=== PATIENT | female | born 1985 | race Caucasian/White ===

== ENCOUNTER 2016-08-22 05:40 | Observation (INO) | payer MEDICAID ==
[2016-08-22 05:40] VITALS: BMI 36.6
[2016-08-22 05:51] VITALS: O2SAT 100
--- NOTE | 2016-08-22 05:58 | C.PDOC ---
History Of Present Illness patient presents with diffuse abdominal pain, sharp, cramping,. no n/v. Time Seen by Provider: 08/22/16 05:58 Chief Complaint (Nursing): Abdominal Pain Past Medical History Reviewed: Historical Data, Nursing Documentation, Vital Signs Vital Signs: Last Vital Signs Temp 97.4 F L 08/22/16 05:48 Pulse 104 H 08/22/16 05:48 Resp 20 08/22/16 05:48 BP 134/72 08/22/16 05:48 Pulse Ox 100 08/22/16 06:18 - Medical History PMH: Gastritis, Hiatal Hernia Surgical History: Tonsillectomy - [facility] Procedures MANUAL ASSIST DELIV NEC (10/13/14) PACKED CELL TRANSFUSION (10/13/14) REPAIR OB LACERATION NEC (10/13/14) Family History: States: Unknown Family Hx - Social History Hx Tobacco Use: No Hx Alcohol Use: No Hx Substance Use: No - Immunization History Hx Tetanus Toxoid Vaccination: No Hx Influenza Vaccination: No Hx Pneumococcal Vaccination: No Review Of Systems Constitutional: Negative for: Fever, Chills ENT: Negative for: Throat Pain Cardiovascular: Negative for: Chest Pain Respiratory: Negative for: Shortness of Breath Gastrointestinal: Positive for: Abdominal Pain. Negative for: Nausea, Vomiting , Constipation Genitourinary: Negative for: Hematuria Musculoskeletal: Negative for: Back Pain Skin: Negative for: Rash, Lesions, Jaundice, Bruising Neurological: Negative for: Weakness Psych: Positive for: Anxiety Physical Exam - Physical Exam Appears: Non-toxic Skin: Warm, Dry Neck: Supple Chest: Symmetrical Cardiovascular: Rhythm Regular Respiratory: No Rales, No Rhonchi, No Wheezing Gastrointestinal/Abdominal: Soft, Tenderness (diffuse), No Distention, No Guarding Extremity: Normal ROM Extremity: Bilateral: Atraumatic, Normal Color And Temperature, Normal ROM Neurological/Psych: Oriented x3, Normal Speech, Normal Cognition Gait: Steady ED Course And Treatment - Laboratory Results Result Diagrams: 08/22/16 06:24 08/22/16 06:24 O2 Sat by Pulse Oximetry: 100 Pulse Ox Interpretation: Normal Progress Note: blood work Disposition Counseled Patient/Family Regarding: Studies Performed, Diagnosis - Disposition Disposition Time: 05:58 Condition: UNKNOWN - Clinical Impression Clinical Impression: Abdominal pain Physician Patient Turnover Patient Signed Over To: Jazmín Hogue Handoff Comments: pending labs , ct abd and disposition
[2016-08-22] MEDS ORDERED: Sodium Chloride 0.9% 1,000 ML IV ONE (06:14)
[2016-08-22] MEDS ORDERED: Sodium Chloride 0.9% 1,000 ML ONE (06:25)
[2016-08-22 06:29] LABS: BASO # 0.1 K/uL (0.0-0.2); BASO % 0.5 % (0.0-2.0); EOS # 0.1 K/uL (0.0-0.7); EOS % 0.8 % (0.0-4.0); HEMATOCRIT 39.9 % (34.0-47.0); LYMPH # 2.1 K/uL (1.0-4.3); MEAN CELL VOLUME 77.5 fL (81.0-99.0); MEAN CORPUSCULAR HEMOGLOBIN 24.9 pg (27.0-31.0); MEAN CORPUSCULAR HGB CONC 32.2 g/dL (33.0-37.0); MEAN PLATELET VOLUME 8.5 fL (7.2-11.7); MONO # 0.6 K/uL (0.0-0.8); MONO % 4.3 % (0.0-10.0); RED CELL DISTRIBUTION WIDTH 16.4 % (11.5-14.5); WHITE BLOOD COUNT 14.2 K/uL (4.8-10.8)
[2016-08-22 06:36] LABS: CHLORIDE 99 mmol/L (98-107); SODIUM 139 mmol/L (132-148)
[2016-08-22 06:37] LABS: POTASSIUM 4.9 mmol/L (3.6-5.2)
[2016-08-22 06:39] LABS: ALKALINE PHOSPHATASE 125 U/L (38-126); ALT/SGPT 99 U/L (9-52); AST/SGOT 208 U/L (14-36); BILIRUBIN,TOTAL 0.9 mg/dL (0.2-1.3); BLOOD UREA NITROGEN 15 mg/dL (7-17); CALCIUM 8.8 mg/dl (8.6-10.4); CARBON DIOXIDE 24 mmol/L (22-30); GFR AFRICAN-AMERICAN > 60; GLUCOSE,RANDOM 118 mg/dL (65-105); TOTAL PROTEIN 8.9 g/dL (6.3-8.3)
[2016-08-22 06:41] LABS: RBC URINE 1 /hpf (0-3); URINE BILIRUBIN NEGATIVE (NEGATIVE); URINE BLOOD NEGATIVE (NEGATIVE); URINE COLOR Yellow (YELLOW); URINE GLUCOSE (UA) NORMAL (Normal); URINE KETONE NEGATIVE (NEGATIVE); URINE LEUKOCYTE ESTERASE NEG Leu/uL (Negative); URINE PROTEIN NEGATIVE (NEGATIVE); URINE UROBILINOGEN NORMAL mg/dL (0.2-1.0); WBC URINE < 1 /hpf (0-5)
[2016-08-22 06:42] LABS: INR 1.1
[2016-08-22] MEDS ORDERED: Piperacillin/Tazobact 3.375 gm 100 ML IVPB STA (06:42)
[2016-08-22] MEDS ORDERED: Iodixanol 320 MG/ML 100 ML BOTTLE IV ONE (08:11)
--- NOTE | 2016-08-22 09:17 | CT ---
PROCEDURE: CT Abdomen and Pelvis with contrast HISTORY: abd pain COMPARISON: Comparison is made to the previous study dated 12/26/2015 TECHNIQUE: Axial and reformatted coronal and sagittal CT images of the abdomen and pelvis were obtained after IV contrast administration. Contrast dose: 100 mL Visipaque Radiation dose: Total exam DLP = 1158.63 mGy-cm. This CT exam was performed using one or more of the following dose reduction techniques: Automated exposure control, adjustment of the mA and/or kV according to patient size, and/or use of iterative reconstruction technique. FINDINGS: LOWER THORAX: Unremarkable. LIVER: Mild hepatomegaly with findings suspicious for mild hepatic steatosis. GALLBLADDER AND BILE DUCTS: There is mild diffuse gallbladder wall thickening. There is questionable mild pericholecystic stranding/ inflammatory changes. If clinically warranted further assessment by other modality is suggested. The common bile duct is not dilated P PANCREAS: Unremarkable. No gross lesion or ductal dilatation. SPLEEN: Unremarkable. ADRENALS: Unremarkable. No mass. KIDNEYS AND URETERS: Unremarkable. No hydronephrosis. No solid mass. VASCULATURE: Unremarkable. No aortic aneurysm. BOWEL: Unremarkable. No obstruction. No gross mural thickening. APPENDIX: There is no evidence of appendicitis. PERITONEUM: Unremarkable. No free fluid. No free air. LYMPH NODES: Unremarkable. No enlarged lymph nodes. BLADDER: Unremarkable. REPRODUCTIVE: Unremarkable. BONES: No acute fracture. OTHER FINDINGS: None. IMPRESSION: Mild diffuse gallbladder wall thickening. suspicious for mild stranding and inflammatory changes around the gallbladder. If clinically warranted further assessment by ultrasound or hepatobiliary scan may be obtained. Mild hepatomegaly and hepatic steatosis. Otherwise no evidence of acute pathology in the abdomen and pelvis.
--- NOTE | 2016-08-22 10:49 | US ---
HISTORY: RUQ PAIN, ELEVATED LIVER ENZYMES, R/O cholecystitis COMPARISON: CT abdomen and pelvis with contrast performed 08/22/16 TECHNIQUE: Sonographic evaluation of the right upper quadrant of the abdomen. FINDINGS: Examination limited due to habitus, bowel gas, and patient condition. LIVER: Measures 15 cm in sagittal dimension. Echogenic liver may be seen in setting of hepatic parenchymal disease or fatty infiltration. No focal hepatic mass identified. The main portal vein appears patent with normal directional flow. No intrahepatic bile duct dilatation. GALLBLADDER: Gallstones. Gallbladder wall thickening measuring approximately 5 mm in diameter. Positive sonographic Chavez's sign as assessed by the bag worker. COMMON BILE DUCT: Measures 5 mm. PANCREAS: Not well-visualized. RIGHT KIDNEY: Measures 10.9 x 4.2 x 4.0 cm. No obstructing calculus or hydronephrosis identified. AORTA: Limited visualization appears grossly unremarkable. IVC: Limited visualization appears grossly unremarkable. OTHER FINDINGS: None . IMPRESSION: Limited study. Cholelithiasis. Thickened gallbladder wall and positive sonographic Chavez's sign as assessed by the bag worker. Constellation of findings may be seen in the setting of acute cholecystitis. Correlate clinically. Echogenic liver may be seen in setting of hepatic parenchymal disease or fatty infiltration.
[2016-08-22 12:11] VITALS: BP 121/85; PULSE 79; RESP 18; TEMP 98.9
== END 2016-08-22 12:05 | disposition home or self-care (01) ==
LOC: C.ER 05:40 → C.9OBSV 08:33
PROVIDERS: ADMIT Emergency Medicine; ATTEND Emergency Medicine
DX: K80.20 Calculus of gallbladder without cholecystitis without obstruction (principal); K76.0 Fatty (change of) liver, not elsewhere classified; R16.0 Hepatomegaly, not elsewhere classified
CPT/HCPCS: 74177; 76705; 80053; 81001; 83690; 84703; 85025; 85610; 85730; 96365; 96375; 99285; G0378; J2270; J2405; J2543; J7040; Q9967

== ENCOUNTER 2017-10-30 19:44 | Emergency (ER) | payer MEDICAID ==
[2017-10-30 19:44] VITALS: BMI 36.6
[2017-10-30 20:10] VITALS: RESP 16; TEMP 98.8; O2SAT 100
--- NOTE | 2017-10-30 21:02 | C.PDOC ---
History Of Present Illness Patient presents to the ER with a complaint of a dull, aching, cramping RUQ/RLQ pain for the past month that has worsened over the past 2 days, associated with some nausea. Denies fever or vomiting. Time Seen by Provider: 10/30/17 21:01 Chief Complaint (Nursing): Abdominal Pain History Per: Patient History/Exam Limitations: no limitations Onset/Duration Of Symptoms: Days Current Symptoms Are (Timing): Still Present Severity: Moderate Pain Scale Rating Of: 4 Location Of Pain/Discomfort: RUQ, RLQ Radiation Of Pain To:: None Quality Of Discomfort: Dull, Aching, Cramping Associated Symptoms: Nausea. denies: Fever, Vomiting Exacerbating Factors: None Alleviating Factors: None Recent travel outside of the [place]: No Abnormal Vaginal Bleeding: No Past Medical History Reviewed: Historical Data, Nursing Documentation, Vital Signs Vital Signs: Last Vital Signs Temp 98.8 F 10/30/17 20:00 Pulse 85 10/30/17 23:25 Resp 16 10/30/17 20:00 BP 99/64 L 10/30/17 23:25 Pulse Ox 100 10/30/17 21:29 - Medical History PMH: Gastritis, Hiatal Hernia Surgical History: Cholecystectomy (December 2016), Tonsillectomy (2005) - [facility] Procedures MANUAL ASSIST DELIV NEC (10/13/14) PACKED CELL TRANSFUSION (10/13/14) REPAIR OB LACERATION NEC (10/13/14) Family History: States: No Known Family Hx - Social History Hx Tobacco Use: No Hx Alcohol Use: No Hx Substance Use: No - Immunization History Hx Tetanus Toxoid Vaccination: No Hx Influenza Vaccination: No Hx Pneumococcal Vaccination: No Review Of Systems Constitutional: Negative for: Fever, Chills Cardiovascular: Negative for: Chest Pain, Palpitations Respiratory: Negative for: Cough, Shortness of Breath Gastrointestinal: Positive for: Nausea, Abdominal Pain. Negative for: Vomiting Physical Exam - Physical Exam Appears: Non-toxic Skin: Warm, Dry Head: Normacephalic Oral Mucosa: Moist Chest: Symmetrical, No Tenderness Cardiovascular: Rhythm Regular Respiratory: No Rales, No Rhonchi, No Wheezing Gastrointestinal/Abdominal: Soft, Tenderness (RUQ/RLQ), No Guarding, No Rebound Neurological/Psych: Oriented x3 ED Course And Treatment - Laboratory Results Result Diagrams: 10/30/17 21:33 10/30/17 21:33 O2 Sat by Pulse Oximetry: 100 (Room air) Pulse Ox Interpretation: Normal Progress Note: Blood work and urinalysis ordered. Protonix, zofran, and IV fluids administered. Reevaluation Time: 23:41 Reassessment Condition: Improved Disposition Counseled Patient/Family Regarding: Studies Performed, Diagnosis, Need For Followup - Disposition Referrals: Amanda Martel [Staff Provider] - Disposition: HOME/ ROUTINE Disposition Time: 21:02 Condition: FAIR Additional Instructions: Please return if symptoms recur Prescriptions: Dicyclomine [Dicyclomine HCl] 10 mg PO TID PRN #15 cap PRN Reason: cramps Instructions: Colic (DC) Forms: [facility] ([place]) - Clinical Impression Clinical Impression: Abdominal pain, Ileus - Scribe Statement The provider has reviewed the documentation as recorded by the Scribe Lonnie Bermeo All medical record entries made by the Scribe were at my direction and personally dictated by me. I have reviewed the chart and agree that the record accurately reflects my personal performance of the history, physical exam, medical decision making, and the department course for this patient. I have also personally directed, reviewed, and agree with the discharge instructions and disposition.
[2017-10-30 21:24] LABS: HCG,QUALITATIVE URINE NEGATIVE (NEGATIVE); SQUAMOUS EPITHIAL 1 /hpf (0-5); URINE BILIRUBIN NEGATIVE (NEGATIVE); URINE BLOOD NEGATIVE (NEGATIVE); URINE CLARITY Clear (Clear); URINE COLOR Yellow (YELLOW); URINE GLUCOSE (UA) NORMAL (Normal); URINE LEUKOCYTE ESTERASE NEG Leu/uL (Negative); URINE PROTEIN NEGATIVE (NEGATIVE); URINE UROBILINOGEN NORMAL mg/dL (0.2-1.0)
[2017-10-30] MEDS ORDERED: Sodium Chloride 0.9% 1,000 ML IV ONE (21:24)
[2017-10-30 21:36] LABS: BASO # 0.1 K/uL (0.0-0.2); BASO % 1.1 % (0.0-2.0); EOS # 0.3 K/uL (0.0-0.7); EOS % 3.2 % (0.0-4.0); HEMOGLOBIN 11.6 g/dL (11.0-16.0); LYMPH # 2.9 K/uL (1.0-4.3); LYMPH % 33.3 % (20.0-40.0); MEAN CORPUSCULAR HEMOGLOBIN 28.1 pg (27.0-31.0); MEAN CORPUSCULAR HGB CONC 33.1 g/dL (33.0-37.0); MEAN PLATELET VOLUME 9.3 fL (7.2-11.7); MONO # 0.7 K/uL (0.0-0.8); MONO % 8.3 % (0.0-10.0); NEUT # 4.7 K/uL (1.8-7.0); NEUT % 54.1 % (50.0-75.0); RBC 4.15 Mil/uL (3.80-5.20); RED CELL DISTRIBUTION WIDTH 14.1 % (11.5-14.5); WHITE BLOOD COUNT 8.7 K/uL (4.8-10.8)
[2017-10-30 21:38] LABS: MEAN CELL VOLUME 84.7 fL (81.0-99.0)
[2017-10-30 21:47] LABS: ALB/GLOB RATIO 1.2 (1.0-2.1); ALT/SGPT 16 U/L (9-52); AST/SGOT 17 U/L (14-36); BLOOD UREA NITROGEN 13 mg/dL (7-17); GFR AFRICAN-AMERICAN > 60; GFR NON-AFRICAN AMERICAN > 60; LIPASE 127 U/L (23-300)
[2017-10-30 22:06] LABS: INR 1.2; PROTHROMBIN TIME 13.3 SECONDS (9.7-12.2)
[2017-10-30] MEDS ORDERED: Iodixanol 320 MG/ML 100 ML BOTTLE IV ONE (22:09)
[2017-10-30 23:25] VITALS: BP 99/64; PULSE 85
--- NOTE | 2017-10-31 09:35 | CT ---
PROCEDURE: CT Abdomen and Pelvis without intravenous contrast HISTORY: Right lower quadrant abdominal pain COMPARISON: CT abdomen and pelvis dated 03/10/2015 TECHNIQUE: Multiple contiguous axial images were performed through the abdomen and pelvis with contrast. Subsequently, sagittal and coronal reformatted images were obtained. Radiation dose: Total exam DLP = 580 mGy-cm. This CT exam was performed using one or more of the following dose reduction techniques: Automated exposure control, adjustment of the mA and/or kV according to patient size, and/or use of iterative reconstruction technique. FINDINGS: LOWER THORAX: Mild atelectasis at the lung bases. 3 millimeter nodule in the left lower lobe of the lung, unchanged. LIVER: Fatty infiltration of the liver. GALLBLADDER AND BILE DUCTS: Gallbladder is absent. Prominence of the common bile duct. PANCREAS: Unremarkable. No gross lesion or ductal dilatation. SPLEEN: Unremarkable. ADRENALS: Unremarkable. No mass. KIDNEYS AND URETERS: Unremarkable. No hydronephrosis. No solid mass. VASCULATURE: Unremarkable. No aortic aneurysm. BOWEL: Postsurgical changes of the gastric sleeve. Mildly dilated small bowel. Fluid noted throughout the small bowel. Terminal ileum is mildly distended with fluid. Moderate fecal retention in the colon. APPENDIX: Not well visualized. PERITONEUM: Unremarkable. No free fluid. No free air. LYMPH NODES: Unremarkable. No enlarged lymph nodes. BLADDER: Unremarkable. REPRODUCTIVE: Corpus luteal cyst in the left ovary. BONES: No acute fracture. OTHER FINDINGS: None. IMPRESSION: Mild ileus. No gross obstruction. 3 millimeter left lower lobe pulmonary nodule unchanged compared to the prior study. Prominent common bile duct status post cholecystectomy. Fatty infiltration the liver. Gastric sleeve. Additional findings as above. These findings were preliminarily reported at 11:14 p.m. on 10/30/[address] Lolita Styles from [facility].
== END 2017-10-31 00:43 | disposition home or self-care (01) ==
LOC: C.ER 19:44
DX: K56.7 Ileus, unspecified (principal); R10.9 Unspecified abdominal pain
CPT/HCPCS: 74177; 80053; 81001; 83690; 84703; 85025; 85610; 85730; 96361; 96374; 96375; 99283; C9113; J2405; J7030; Q9967